=== PATIENT | female | born 1995 ===

== ENCOUNTER 2023-12-05 15:16 | Outpatient (CLI) | payer OTHER, SELFPAY ==
[2023-12-05 20:03] LABS: Chlamydia DNA Amplified* NOT DETECTED (No Detected); GC DNA Amplified* NOT DETECTED (No Detected)
== END 2023-12-05 15:17 | disposition home or self-care (01) ==
PROVIDERS: Visit Provider Physician Assistant
DX: Z34.91 Encounter for supervision of normal pregnancy, unspecified, first trimester (principal); Z3A.09 9 weeks gestation of pregnancy
CPT/HCPCS: 76817; 86592; 86703; 86704; 86706; 86762; 86787; 86803; 86850; 86900; 86901; 87086; 87340; 87491; 87591

== ENCOUNTER 2024-02-16 09:09 | Outpatient (CLI) | payer OTHER, SELFPAY ==
--- NOTE | 2024-02-16 09:15 | CRLHL7_ITS ---
For Patients: As a result of the Century Cures Act, medical imaging exams and procedure reports are released immediately into your electronic medical record. You may view this report before your referring provider. If you have questions, please contact your health care provider. INDICATION: survey. TECHNIQUE: Conventional transabdominal two-dimensional grayscale ultrasound examination. COMPARISON: 12/05/2023 FINDINGS: There is a living fetus with gestational age of 20 weeks 1 day by LMP and today`s measurements. EDC is 07/04/2024. BPD: 4.8 cm, 20 weeks 3 days Head circumference: 17.4 cm, 20 weeks Abdominal circumference: 14.8 cm, 40 weeks Femur length: 3.2 cm, 19 weeks 6 days HC/AC: 1.18 The weight is estimated at 325 grams, the 36th percentile. The heart rate is measured at 165 beats per minute and the rhythm appears regular. The spine is suboptimally visualized due to position. The head is grossly intact. No gross facial abnormality is evident. The upper lip is intact. Four cardiac chambers are demonstrated. The heart and stomach appear to be on the same side. The diaphragm is intact. Two kidneys and a bladder are demonstrated. The cord insertion is normal and three cord vessels are noted. Four extremities are demonstrated. The amniotic fluid volume is within normal limits. The placenta is anterior with no evidence of previa. The cervical length is normal at 4.6 cm. IMPRESSION: 1. Living fetus with gestational age of 20 weeks 1 day by LMP and today`s measurements. EDC is 07/04/2024. 2. No anomaly evident. spine less than optimally visualized due to position. Limited follow up recommended. Dictated by Max Buchanan MD @ 02/17/2024 8:24:02 AM (Electronically Signed)
== END 2024-02-16 09:10 | disposition home or self-care (01) ==
LOC: US 09:10
PROVIDERS: Visit Provider Advanced Practice Midwife
DX: Z34.92 Encounter for supervision of normal pregnancy, unspecified, second trimester (principal); Z3A.20 20 weeks gestation of pregnancy
CPT/HCPCS: 76805

== ENCOUNTER 2024-03-12 09:57 | Outpatient (CLI) | payer OTHER, SELFPAY | END 2024-03-12 09:58 | disposition home or self-care (01) | LOC: US 09:58 | PROVIDERS: Visit Provider Obstetrics & Gynecology | DX: O35.BXX0 Maternal care for other (suspected) fetal abnormality and damage, fetal cardiac anomalies, not applicable or unspecified (principal); O35.FXX0 Maternal care for other (suspected) fetal abnormality and damage, fetal musculoskeletal anomalies of trunk, not applicable or unspecified; Z3A.00 Weeks of gestation of pregnancy not specified | CPT/HCPCS: 76816 ==

== ENCOUNTER 2024-04-12 09:15 | Outpatient (CLI) | payer OTHER, SELFPAY | END 2024-04-12 09:16 | disposition home or self-care (01) | LOC: NFLDREF 04-15 02:15 | PROVIDERS: Visit Provider Obstetrics & Gynecology | DX: Z34.03 Encounter for supervision of normal first pregnancy, third trimester (principal) | CPT/HCPCS: 86592 ==

== ENCOUNTER 2024-06-06 15:25 | Outpatient (CLI) | payer OTHER, SELFPAY ==
[2024-06-07 15:24] LABS: Strep B DNA Probe Negative (Negative)
[2024-06-07 21:52] LABS: Strep B Susceptibility Needed? Yes
== END 2024-06-06 15:26 | disposition home or self-care (01) ==
LOC: NFLDREF 15:25
PROVIDERS: Visit Provider Obstetrics & Gynecology
DX: Z34.03 Encounter for supervision of normal first pregnancy, third trimester (principal)
CPT/HCPCS: 87081; 87653

== ENCOUNTER 2024-06-28 21:00 | Inpatient (IN) | payer OTHER, SELFPAY ==
[2024-06-28 20:53] VITALS: BP 122/75; PULSE 80; RESP 16; TEMP 37
[2024-06-28 21:07] LABS: Amnisure Rom* POSITIVE
--- NOTE | 2024-06-28 21:16 | W.PM.LDBA ---
Subjective History of Present Illness Date Seen: 06/28/24 Narrative: Patient is being admitted to Labor and Delivery for delivery after SROM. She is a 29 year old G1/P at 39 1/7 weeks gestation. Her full history and physical was dictated by Dr. King on 06/12/24. Please see this for details. Patient states that around 5pm on 06/28/24 she noticed a watery like vaginal discharge. Patient decided to wait a bit at home and presented to labor and delivery where AmniSure was found positive. NST showing regular contractions that patient was describing as mild. 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 EFW 325g at 36%ile, MVP 4.8cm. Anterior placenta, no previa. Cx 4.6cm. - 03/12: 3VV, 3VT and spine views normal Vaccinations: COVID: Declined Flu: Declined Tdap: Declined RSV: N/A 32 week mental health: No acute concerns 34 week hgb: 11.8 GBS: 06/06 negative Last pap: 07/26/2021 OB - Problem Based A/P Additional Plan (1) SROM (spontaneous rupture of membranes): Status: Acute Plan 1. Admit for delivery after SROM. Favorable cervix, expectant management at the moment, expect a vaginal delivery. 2. GBS negative no need for antibiotic prophylaxis. 3. Candidate for pain management as per patient request. OB Exam Physical Exam Vital signs: Temp Pulse Resp BP 98.6 F 80 16 122/75 06/28/24 20:53 06/28/24 20:53 06/28/24 20:53 06/28/24 20:53 Detailed Labor and Delivery Exam Patient Gravid: Yes Dilation (cm): 3 Effacement (%): 70 Fetus (Single) Station: -1 Amniotic Membrane Status: SROM Amniotic Membrane Fluid Description: Clear Heart Rate Baseline: 140 Monitor Accelerations: Present Monitor Decelerations: None Alf Variability: Moderate (6-25)
[2024-06-28 21:30] LABS: Clue Cells No Clue Cells Seen (None Seen); Trichomonas No Trichomonas Seen (None Seen); Yeast No Yeast Seen (None Seen)
[2024-06-28 21:58] VITALS: BMI 25.0
[2024-06-28 22:20] VITALS: RESP 16; TEMP 36.8
[2024-06-28 23:32] VITALS: RESP 16; TEMP 36.8
[2024-06-29] VITALS (36 sets, daily range): BP systolic 91–143; BP diastolic 50–86; PULSE 68–97; RESP 16–20; TEMP 36.4–37.2; O2SAT 92–98
--- NOTE | 2024-06-29 08:19 | PM.OBPNL ---
Subjective Time Seen by Provider: 08:19 Date Seen: 06/29/24 Narrative: Subjective: The patient is having contractions but is not uncomfortable with them. Had a detailed conversation with Tasia and Will regarding my recommendation to start Pitocin to augment the patient's labor. She has done all of the non-medical options for encouraging labor that have not been successful. All of her questions were answered. She would like to have an unmedicated delivery. Vital signs: Per electronic medical record. EFM: Doing intermittent monitoring currently and not on the monitor continuously until she is on Pitocin. Has had a category 1 tracing multiple times throughout the night. [place]: Contractions every 5-10 minutes. SVE per nursin cm/70 %/-1. Assessment: 29-year-old 1 para 0 at 39 weeks 2 days gestation status post PROM at 17:30 on 06/28/24. Plan: 1. Start Pitocin per labor induction protocol 2. Is a candidate for all types of labor analgesia. 3. GBS negative 4. Blood type A positive 5. The patient is planning on her baby. Objective Vital Signs: Last Vital Signs Temp 98.1 F 06/29/24 07:48 Pulse 90 06/29/24 07:48 Resp 16 06/29/24 07:48 BP 130/83 06/29/24 07:48 Pulse Ox 98 06/29/24 07:46 Assessment Station: -1 Heart Rate Baseline: 140 Monitor Accelerations: Present Monitor Decelerations: None
[2024-06-29] MEDS: LACTATED RINGERS 1000 ML 1,000 ML 125 ML IV ×2 (09:19→16:52)
[2024-06-29] MEDS: OXYTOCIN 30 unit/500 ML in NS 30 UNIT/500 ML BAG IVPB (09:23)
--- NOTE | 2024-06-29 14:04 | PM.OBPNL ---
Subjective Time Seen by Provider: 14:04 Date Seen: 06/29/24 Narrative: Subjective: Patient is feeling some cramping in her back and pelvis with contractions but tearful because she feels she is not making much progress. Reassured her that she is doing everything she can to make her labor progress. She has not noticed much leaking of fluid today and I asked for verbal consent to rupture of forebag if there is one. Did not get any sleep overnight or today. Encouraged her to try rest before contractions become more intense. Pitocin: 9 milliunits/minute. Vital signs: Per electronic medical record. EFM: Baseline 140 bpm, positive accelerations, intermittent variable (small 10 bpm lasting less that 10 seconds) decelerations, moderate variability, reactive. Category 2. [place]: Contractions every 3-6 minutes. SVE: 5 cm/70 %/0. Assessment: 29-year-old 1 para 0 at 39 weeks to days gestation undergoing induction of labor after PROM. Plan: 1. Continue Pitocin per labor induction protocol. 2. She is a candidate for any mode of analgesia that she desires for labor. Objective Vital Signs: Last Vital Signs Temp 98.2 F 06/29/24 13:47 Pulse 90 06/29/24 13:47 Resp 20 06/29/24 13:47 BP 130/84 06/29/24 13:47 Pulse Ox 97 06/29/24 13:47 Assessment Station: -1 Heart Rate Baseline: 140 Monitor Accelerations: Present Monitor Decelerations: None
[2024-06-30] VITALS (16 sets, daily range): BP systolic 107–140; BP diastolic 62–78; PULSE 70–129; RESP 16–18; TEMP 36.6–37.1; O2SAT 95–98
[2024-06-30] MEDS: LIDOCAINE 1 % PF 30 ML INJECTION (01:18)
--- NOTE | 2024-06-30 02:01 | W.PM.VAGDE_ITS ---
OB Procedure Vag Delivery Mother Details Mother Details: The patient is a 29 year-old, 1, Para 0 , admitted on 06/28/24 at 39w1d gestation with PROM. She requested trying spinning babies circuit, nipple stimulation and walking to promote spontaneous onset of labor. At 16 hour after PROM she gave verbal consent to start pitocin per labor induction protocol. : 1 Para: 0 Weeks Gestation: 39 Admission Date: 06/28/24 Additional Details Amniotic Membrane Status: SROM Amniotic Membrane Rupture Date: 06/28/24 Amniotic Membrane Rupture Time: 17:30 Amniotic Membrane Fluid Description: Clear Analgesia/Anesthesia Type: Nitrous Oxide Waterbirth: No Pitcoin: Yes Intrapartal Events: ROM >18 Hours Induction Method: per pitocin protocol Labor Onset: 17:00 (on 06/29/24) Complete: 23:17 (06/29/24) Pushin:17 (on 06/29/24) Heart: heart tones during second stage were reassuring with baseline of 120- 130bpm, some variable decelerations with but immediate return to baseline between contractions. Delivery Details Delivery Date: 06/30/24 Delivery Time: 01:03 Route of delivery: Gender: Male Viability: Alive; Heart Rate Present Position at Delivery: OA Delivery Details: The patient delivered over a second-degree perineal and right first-degree periurethral laceration via normal spontaneous vaginal delivery. There was a nuchal cord that was easily reduced after delivery of the infant's head prior to delivery of the infant's shoulders. The infant delivered in the direct OA position and restituted to [facility] for delivery of the shoulders. Infant was placed on maternal abdomen.? Cord was clamped and cut after an approximately 5 minute delay. Cord was clamped and cut when the cord had stopped pulsing. Nose and mouth were bulb suctioned.? Infant weight pending. Apgars 8 at 1 minute and 9 at 5 minutes. weight is pending. No shoulder dystocia. 1 Minute Interval Total Score: 8 5 Minute Interval Total Score: 9 Additional Details Shoulder Dystocia: No Placenta Delivery Time: 01:14 Placental Delivery Description: Spontaneous Delivery repair: Vicryl Procedure Done: Global Blood Loss: 75 Laceration: Perineal - 2nd Degree (And first-degree right periurethral. The perineal laceration was repaired in the usual manner with 3-0 Vicryl. The 1st degree periurethral laceration did not require repair.) Blood Loss Measurement Type: QBL Bakri Used: No Sponge/Need Count Correct: Yes Cord Vessel Description: 3 Vessels Event Summary Status: Mother and infant were stable after delivery. The patient is planning on . Disposition: floor
[2024-06-30] MEDS: IBUPROFEN 600 MG TABLET PO ×2 (03:41→09:44)
[2024-07-01] MEDS: IBUPROFEN 600 MG TABLET PO (01:02)
[2024-07-01 01:03] VITALS: BP 118/84; PULSE 71; RESP 16; TEMP 36.6
[2024-07-01 06:19] LABS: Hemoglobin* 11.6 gm/dL (12.0-16.0)
[2024-07-01 07:28] VITALS: BP 106/71; PULSE 78; RESP 18; TEMP 36.6; O2SAT 97
--- NOTE | 2024-07-01 08:08 | P.DS_ITS ---
DS: Providers Provider Date Seen: 07/01/24 Date of admission: 06/28/24 21:00 Primary care physician: Not a Local Provider Admitting Clinician: Ariane Quick MD Attending Physician on discharge: Ariane Quick MD Date of Discharge: 07/01/24 DS: Diagnosis Discharge Diagnosis (1) Lactating mother: Status: Acute (2) Second degree perineal laceration during delivery: Status: Acute (3) care following vaginal delivery: Status: Acute Exam Narrative: Exam Narrative: GENERAL APPEARANCE:? normal affect, alert, no distress? MOOD:? appropriate? CHEST:? clear to auscultation and percussion? HEART:? regular rate and rhythm? ABDOMEN:? soft, non-tender the uterine fundus is U/2 and is appropriate for the stage of recovery.? PERINEUM:? mild edema of the perineum, there is a 2nd degree laceration that is healing well.? EXTREMITIES:? normal and no edema? Const: Vital Signs, click to edit/add: Vital Signs - 24 hr 06/30/24 08:52 06/30/24 14:21 06/30/24 17:52 Temperature 98.3 F 97.8 F 98.1 F Pulse Rate [Blood Pressure Cuff] 78 83 81 Respiratory Rate 18 16 18 Blood Pressure [Ri ght Arm] 109/69 107/67 114/75 Pulse Oximetry 97 98 97 Oxygen Delivery Me thod Room Air Room Air Room Air 06/30/24 20:32 07/01/24 01:03 07/01/24 07:28 Temperature 98.5 F 97.9 F 97.8 F Pulse Rate [Blood Pressure Cuff] 83 71 78 Respiratory Rate 16 16 18 Blood Pressure [Ri ght Arm] 110/68 118/84 106/71 Pulse Oximetry 97 Oxygen Delivery Me thod Room Air Room Air Documenting provider has reviewed patient's vital signs: yes OB - DS: Summary Hospital Course Hospital Course: Tasia is a 29 year old G 1 P 1 at 39.3 weeks gestation that was admitted to the Center on 06/28/24 for SROM. She had an uncomplicated vaginal delivery. She delivered a viable male infant. She is breast feeding which is going well but endorses sore nipples. Encouraged consultation before discharge and PP PRN. the patient has done well. Her pain is well controlled with current medications.? She has no new complaints.? Urinary output is adequate and she is voiding without difficulty.? Has a good appetite, is tolerating a general diet, is passing flatus, and has not yet had a bowel movement.? Has scant amount of rubra lochia.? She is ambulating well. She is uncertain what she is planning for PP contraception as this was achieved with IUI. Discussed fertility changes after and encouraged 12-18 months from to conception. Discussed non-hormonal and progestin only options. Peripartum Data Infant delivery method: Vaginal Laceration description: Perineal - 2nd Degree Episiotomy description: None [place] Infant Gender: Male Infant Discharge Plan: Home Status at Discharge Functional status at discharge: independent ambulation Overall status at discharge: patient is progressing back to baseline Time Spent with Patient Time attestation: Total time spent providing and/or coordinating discharge services: Discharge Plan Discharge Disposition: Home, Self-Care Date of Admission: 06/28/24 21:00 Attending Provider on Discharge: Liz Ashley Primary Care Provider: Provider,Not a Local Condition: Stable Anticipated Discharge Date/Time: 07/01/24 12:00 Discharge Medications: New ibuprofen 600 mg Tablet 600 mg PO Q6H PRNQty: 60 0RF Continued Classic 28 mg iron- 800 mcg tablet 1 tab PO QDAY magnesium glycinate 100 mg tablet 220 mg PO QDAY Discharge Orders: Discharge Order (Routine); Ordered 07/01/24 Ordered By: Liz Ashley Patient Education: OB Vaginal/Breast Feeding Additional Instructions: Discharge instructions were reviewed with the patient including signs and symptoms of infection and home going medications.? Lifting Restrictions: 20 pounds for 6? weeks? ?? Do not drive while taking narcotic pain meds.? Off Work or School for 6 weeks.? ?? Symptoms to report to doctor:? -Bleeding that saturates more than one pad per hour? -Passing clots larger than the size of a golf ball? -Pain not relieved by prescribed medication? -Fever above 100.4 degrees Fahrenheit? -A foul vaginal odor? -Difficulty in emotions, mood and functions? -Thoughts of hurting yourself and/or ? -Painful, reddened area in your breast? -Any drainage, redness or tenderness in your IV/epidural site? -Severe headache that doesn't improve after taking medications? -Changes in vision, including temporary loss of vision, blurred vision, and/or light sensitivity? -Upper abdominal pain (usually under ribs on the right side)? -Decrease in urination or painful, frequent urinating? -Chest pain? -Shortness of breath? -Tenderness or pain with redness and/swelling in the calf(s) of your leg? ?? Follow Up in clinic in 2 and 6 weeks.? ?? consultation services are available to all mothers and babies for the first year after delivery.? To make an appointment, please call [phone].? Activity Level: Activity as Tolerated Discharge Diet: Regular Follow Up Appointments: [facility] [Provider Group] Provider,Not a Local [Primary Care Provider] - Forms: MyHealth Info Instructions
== END 2024-07-01 14:10 | disposition home or self-care (01) | DRG 807 ==
LOC: OB OUT 22:10 → OB 22:10
PROVIDERS: Obstetrics & Gynecology; Admitting Provider Obstetrics & Gynecology; Visit Provider Obstetrics & Gynecology
DX: O42.02 Full-term premature rupture of membranes, onset of labor within 24 hours of rupture (principal); Z37.0 Single live birth; O70.1 Second degree perineal laceration during delivery; O70.0 First degree perineal laceration during delivery; Z3A.39 39 weeks gestation of pregnancy
CPT/HCPCS: 36415; 84112; 85018; 86592; 87210; A9270; J2003; J7120

== ENCOUNTER 2024-07-15 11:51 | Outpatient (CLI) | payer OTHER, SELFPAY ==
--- NOTE | 2024-07-15 13:46 | W.PM.LAC.MC ---
Consult Note - Mom Date of Visit Date of visit: 07/15/24 Reason for consultation: Assistance Needed and Breast/Nipple Issue (Left sided nipple pain) Visit Code: Visit Patient's Information Phone number: [phone] Para: 1 Allergies No Known Drug Allergies Allergy (Verified 06/26/24 09:13) Mother's Medical History: Medical History (Updated 07/04/24 @ 00:01 by Background Dakerri) ?Z34.90 - Encounter for supervision of normal , unspecified, unspecified trimester (ICD-10) Primary infertility Work Plans: return to work at 12 weeks Delivery Information Delivery type: Vaginal Gestational Age: 39+3 Gestational Weight For Age: AGA Weight: 3.215 kg Discharge Weight: 3.072 kg Percentage weight loss: 4.5 Baby's Information Baby's Age at Visit: 15 days Baby's Provider or Clinic: [facility] Jaundice: No Past Experience Past Experience: No Current Frequency of Day Feedings: every 1-3 hours Frequency of Night Feedings: about 3-3.5 hours Both Breasts: Yes (offered) Suck: strong Latch: wide, deep; comfortable on RIGHT side, painful on LEFT side Length of Time: 15-20 minutes on 1st; 10 or so on 2nd side Goals: 1 year Pumping Pumping: No Supplementing EBM Supplement: No Formula Supplement: No Baby Elimination Number of Wet Diapers a Day: 8 or more Number of BM a Day: 8 or more, yellow, seedy Breast/Nipple Condition Breast Information: Breasts are symmetrical with rounded lower quadrants, intramammary distance is less than 1.5 inches. No erythema. Nipples are supple, everted prior to feeding, needs to roll LEFT nipple a little to suzette. Nipples measured for flange size: 19mm Breast Shape: Round Engorgement: No Maternal Nipple Condition - Left: Common Nipple and Cracking/ Fissures (open wounds on both left and right side of LEFT nipple) Maternal Nipple Condition - Right: Common Nipple Sore Nipples: Yes Interventions for Sore Nipples: Lansinoh/Nipple Cream, Soothies/Hydrogel Pads and Other (Silverettes) Baby Assessment Skin: Normal Tongue/frenulum: Normal/elastic Palate: Average Lips: Relaxed and Symmetrical Jaw Alignment: Symmetrical Mucosa: [place], moist Onsite Observation Pre-Feed weight: 3.53 kg Post-Feed weight: 3.592 kg Milk Transferred (mL): 62 Position: Cross cradle Attachment/latch-on achieved: Easily Suck pattern: Suck burst and normal rest Swallow: Audible, consistent and Gulping Behavior following feed: Alert, content Pre-Nursing Left Nipple: Crusting/Scabs (not crusting, but does have open wounds) Pre-Nursing Right Nipple: Within Normal Limits Post-Nursing Left Nipple: Crusting/Scabs (wounds more open but not bleeding, oozing) Post-Nursing Right Nipple: Within Normal Limits Assessments/Interventions Assessments/Interventions: Babe latched well to mom's LEFT breast, latched well witth deep latch on 2nd attempt and stayed nursing for 20 minutes. After first attempt, babe unlatched to work on deeper latch using asymmetric technique and breast sandwich for initial pressure point beyond soreness on nipple. Transferred 34 ml of milk Babe then latched to mom's RIGHT breast, latched easily without pain and nursed for another 10 minutes. Transferred 28 ml of milk. Total: 62 ml of milk Babe needed support to stay comfortably latched on left side. Mom reports initial latch still twingy, but once baby in a suckling rhythm pain was less than it's been at home Quicker latch, and deeper latch, allowed for more effective nursing. Education provided: Early feeding cues to maximize timing of latching, Asymmetric latch technique for wide/deep latch to increase milk, Transfer for baby and increase comfort for mom (Discussed alternating cross cradle hold with football hold for different pressure points that may help nipple heal), Supply/demand nature of milk supply, Sore nipple treatment options (Nipple cream with breast shells alternated with silverettes or soothies; do not use nipple cream with silverettes, benefits of moist wound healing discussed) and Alternative feeding methods (SNS, cup, finger feeding, bottling) (discussed as option if needed; prefer to work on deeper latch that allows healing) Time Spent Time spent with patient (min): 90 (reviewing EMR and face to face with patient and baby) Meds Home Medications and Allergies Home Medications ?Medication ?Instructions ?Recorded ?Confirmed ?Type vits no.126-ferrous fum 1 tab PO QDAY 05/18/23 06/29/24 History 28 mg iron-folic acid 800 mcg tablet (Classic ) magnesium glycinate 100 mg (as 220 mg PO QDAY 04/25/24 06/28/24 History glycinate) tablet ibuprofen 600 mg tablet 600 mg PO Q6H PRN #60 tabs 07/01/24 Rx Allergies Allergy/AdvReac Type Severity Reaction Status Date / Time No Known Drug Allergies Allergy Verified 06/26/24 09:13
== END 2024-07-15 11:52 | disposition home or self-care (01) ==
LOC: OB LAC 11:51
PROVIDERS: Visit Provider Obstetrics & Gynecology
DX: Z39.1 Encounter for care and examination of lactating mother (principal)
CPT/HCPCS: G0463

== ENCOUNTER 2024-08-14 14:34 | Outpatient (CLI) | payer OTHER, SELFPAY ==
[2024-08-17 02:38] LABS: HPV Source Cervix
== END 2024-08-14 14:35 | disposition home or self-care (01) ==
PROVIDERS: Visit Provider Registered Nurse
DX: Z12.4 Encounter for screening for malignant neoplasm of cervix (principal)
CPT/HCPCS: 87086; 87624; 87625; 88141; 88142